=== PATIENT | male | born 1975 | race Caucasian/White ===

== ENCOUNTER → 2017-10-13 | Outpatient (CLI) | payer BC ==
[~2017-10-13] MED LIST: IBUPROFEN 800800 M1 PO; NORCO 5-325 TA1 EAC1 PO
--- NOTE | 2017-10-13 11:49 | 2DMMODE ---
[place] [address] 2 D/M-MODE ECHOCARDIOGRAM Name: JUANA RICH Room: [facility]#: [id number] Admission: 10/13/17 Attend Phys: Frank Riggins, Discharge: Date of : 73 Date of Service: 10/13/17 1149 Report #: [id number] THIS REPORT FOR: //name// APPROVED REPORT Study performed: 10/13/2017 07:58:53 EXAM: Comprehensive 2D, Doppler, and color-flow Echocardiogram Patient Location: Out-Patient Status: routine BSA: 2.20 HR: 58 bpm BP: 132/82 mmHg Other Information Study Quality: Good Indications Chest Pain 2D Dimensions LVEF(%): 69.96 (>50%) IVSd: 12.08 (7-11mm) LVOT Diam: 20.45 (18-24mm) LVDd: 51.60 mm PWd: 11.49 (7-11mm) Ascending Ao: 26.75 (22-36mm) LVDs: 31.10 (25-40mm) Aortic Root: 25.25 mm López's LVEF: 69.96 % Volumes Left Atrial Volume (Systole) LA ESV Index: 17.30 mL/m2 Aortic Valve AoV Peak Jamil.: 1.17 m/s AO Peak Gr.: 5.51 mmHg LVOT Max P.07 mmHg AO Mean Gr.: 3.16 mmHg LVOT Mean P.72 mmHg LVOT Max V: 1.01 m/s AO V2 VTI: 26.04 cm LVOT Mean V: 0.59 m/s CARLEY (VTI): 2.97 cm2 LVOT V1 VTI: 23.53 cm Mitral Valve E/A Ratio: 1.39 MV Decel. Time: 159.54 [place] [address] 2 D/M-MODE ECHOCARDIOGRAM Name: JUANA RICH Room: [facility]#: [id number] Admission: 10/13/17 Attend Phys: Frank Riggins, Discharge: Date of : 73 Date of Service: 10/13/17 1149 Report #: [id number] MV E Max Jamil.: 0.84 m/s MV PHT: 46.27 ms MVA (PHT): 4.76 cm2 TDI E/Lateral E': 5.60 E/Medial E': 7.64 Medial E' Jamil.: 0.11 m/s Lateral E' Jamil.: 0.15 m/s Pulmonary Valve PV Peak Jamil.: 1.03 m/s PV Peak Gr.: 4.24 mmHg Left Ventricle The left ventricle is normal size. There is normal LV segmental wall motion. There is normal left ventricular wall thickness. Left ventricular systolic function is normal. LVEF is 60%. The left ventricular diastolic function is normal. Right Ventricle The right ventricle is normal size. The right ventricular systolic function is normal. Atria The left atrium size is normal. The right atrium size is normal. Aortic Valve The aortic valve is normal in structure. No aortic regurgitation is present. There is no aortic valvular stenosis. Mitral Valve The mitral valve is normal in structure. Trace to mild mitral regurgitation. No evidence of mitral valve stenosis. Tricuspid Valve The tricuspid valve is normal in structure. There is no tricuspid valve regurgitation noted. Pulmonic Valve The pulmonary valve is normal in structure. Trace pulmonic regurgitation. Great Vessels The aortic root is normal in size. IVC is normal in size and collapses with >50% [place] [address] 2 D/M-MODE ECHOCARDIOGRAM Name: JUANA RICH Room: [facility]#: [id number] Admission: 10/13/17 Attend Phys: Frank Riggins, Discharge: Date of : 73 Date of Service: 10/13/17 1149 Report #: [id number] Pericardium There is no pericardial effusion. <Conclusion> The left ventricle is normal size. There is normal left ventricular wall thickness. Left ventricular systolic function is normal. LVEF is 60%. The left ventricular diastolic function is normal. Trace to mild mitral regurgitation. Trace pulmonic regurgitation. IVC is normal in size and collapses with >50% inspiration <ELECTRONICALLY SIGNED> By: Abdulkadir Martinez MD, FACC 10/13/17 1149 1149 1149 Abdulkadir Martinez MD, FACC /INF
--- NOTE | 2017-10-13 16:37 | CARDNUC ---
[place] [address] CARDIAC NUCLEAR IMAGING REPORT Name: JUANA RICH Room: [facility]#: [id number] Admission: 10/13/17 Attend Phys: Frank Riggins, Discharge: Date of : 73 Date of Service: 10/13/17 1637 Report #: [id number] THIS REPORT FOR: //name// APPROVED REPORT Imaging Protocol: Rest Tc-99m/Stress Tc-99m 1 day Study performed: 10/13/2017 08:15:00 Indication: Chest pain, Dyspnea Patient Location: Out-Patient Stress Tech: Sena Roman Stress Nurse: Giovanna Schneider RN NM Tech:PREM Gunn Ht: 6 ft 0 in Wt: 224 lbs BSA: 2.24 m2 BMI: 30.37 Medical History Medical History: None Medications: No cardiac medications Allergies: No known drug allergies Cardiac Risk Factors: Current Smoker, FHX of CAD Previous Cardiac Procedures: None Exercise History: Physically active Meds Held (24 hrs): None Meds Held (48 hrs): None Resting Data Rest SPECT myocardial perfusion imaging was performed in supine position 30 minutes following the intravenous injection of 10.6 mCi of Tc-99m Sestamibi. Time of rest injection: 909 Date: 10/13/2017 Time of rest imagin The images were gated to evaluate regional wall motion and calculate left ventricular ejection fraction. Administration Route: IV Administration Site: Right Hand Exercise Stress At peak stress, the patient was injected intravenously with 34.2mCi of Tc-99m Sestamibi. Time of stress injection: 1035 Time of stress imagin Administration Route: IV Administration Site: [place] [address] CARDIAC NUCLEAR IMAGING REPORT Name: JUANA RICH Room: [facility]#: [id number] Admission: 10/13/17 Attend Phys: Frank Riggins, Discharge: Date of : 73 Date of Service: 10/13/17 1637 Report #: [id number] Gated Stress SPECT was performed 30 minutes after stress injection. The images were gated to evaluate regional wall motion and calculate left ventricular ejection fraction. Prone imaging was performed. Stress Test Details Stress Test: Exercise stress testing was performed using a Erasmo protocol. HR Max Heart Rate (APMHR): 178 bpm Resting HR: 53 bpm Target HR (85% APMHR): 151 bpm Max HR Achieved: 161 bpm % of APMHR: 90 Recovery HR: 79 bpm BP Resting BP: 139/97 mmHg Recovery BP: 149/78 mmHg ECG Resting ECG: Sinus Rhythm, normal EKG Stress ECG: Sinus Tachycardia ST Change: None Arrhythmia: None Recovery ECG: Sinus Rhythm, normal EKG Recovery ST Change: None Recovery Arrhythmia: None Clinical Reason for Termination: Fatigue Exercise duration: 13 min 15 sec Exercise capacity: 13.48 METs Overall Exercise Capacity for Age: Excellent The patient exhibited excellent exercise tolerance. There were no EKG changes to suggest stress-induced ischemia. Stress ECG Conclusion The baseline 12-lead EKG showed sinus rhythm without significant ST or T wave abnormality. EKGs obtained during and post exercise showed sinus rhythm and sinus tachycardia with no significant ST or T wave changes when compared to baseline. There were no stress-induced arrhythmias. Study Quality Study: [place] [address] CARDIAC NUCLEAR IMAGING REPORT Name: JUANA RICH Room: [facility]#: [id number] Admission: 10/13/17 Attend Phys: Frank Riggins, Discharge: Date of : 73 Date of Service: 10/13/17 1637 Report #: [id number] Artifact: Mild Diaphragmatic artifact Study Data At rest, the left ventricular ejection fraction was 59%.. Post stress, the left ventricular ejection was 55%.. TID = 1.06. Perfusion Myocardial perfusion images obtained in the supine position at rest and post stress show mild photopenia involving the inferior wall that resolves with post stress prone imaging consistent with diaphragmatic attenuation artifact. Post stress prone imaging shows uniform uptake of the radioisotope throughout the myocardium without defect. Wall Motion Normal left ventricular wall motion. Nuclear Conclusion ECG Findings: negative for ischemia Clinical Findings: negative for ischemia Nuclear Findings: negative for ischemia Exercise Capacity: excellent Left Ventricular Function: normal Risk Study: low Myocardial perfusion images show no defect to suggest infarct or ischemia. Left ventricular systolic function appears normal on gated studies. This is a low risk study. <Conclusion> The baseline 12-lead EKG showed sinus rhythm without significant ST or T wave abnormality. EKGs obtained during and post exercise showed sinus rhythm and sinus tachycardia with no significant ST or T wave changes when compared to baseline. There were no stress-induced arrhythmias. <ELECTRONICALLY SIGNED> By: Abdulkadir Martinez MD, FACC 10/13/17 1637 1637 1637 Abdulkadir Martinez MD, FACC /INF
== END ==
LOC: M.RAD 09-24 15:57 → M.CRD 07:11 → M.RAD 08:30
DX: R07.89 Other chest pain (principal); R06.00 Dyspnea, unspecified; R06.02 Shortness of breath